=== PATIENT | female | born 1935 | race Caucasian/White ===

== ENCOUNTER 2016-08-02 17:55 | Emergency (ER) | payer OTHER ==
[~2016-08-02] VITALS: Ht 157.5 cm; Wt 98.6 kg
[~2016-08-02 17:55] MED LIST: AMLO2.5T PO; ATEN1TAB74 PO; ATOR20TA42 PO; CILO100T PO; ENAL2.5 PO; FLAX100013; GARL1000; HYDR-3533 PO; LANTUS2P SC; LUTE20CA PO; MAXZ25 PO; METF500 PO; METHO500 PO; NOVOLOGP2 SC; OMEG100037; POTA75TA2 PO; VITATAB11
[2016-08-02 17:58] VITALS: BP 149/64; PULSE 76; RESP 20; TEMP 98.2; O2SAT 100
[2016-08-02] MEDS ORDERED: SODIUM CHLORIDE 0.9% FLUSH 5 ML FLUSH IVF PRN (19:45)
[2016-08-02 20:18] LABS: AUTOMATED NEUTROPHIL # 6.1 TH/MM3 (1.8-7.7); BASOPHIL # 0.1 TH/MM3 (0-0.2); BASOPHIL % 0.5 % (0.0-2.0); EOSINOPHIL # 0.3 TH/MM3 (0-0.4); EOSINOPHIL % 2.5 % (0.0-4.0); HEMATOCRIT 35.5 % (35.0-46.0); LYMPH % 25.9 % (9.0-44.0); MEAN CELL VOLUME 83.8 FL (80.0-100.0); MEAN CORPUSCULAR HEMOGLOBIN 27.7 PG (27.0-34.0); MEAN CORPUSCULAR HGB CONC 33.1 % (32.0-36.0); MONO % 17.7 % (0.0-8.0); NEUT % 53.4 % (16.0-70.0); PLATELET COUNT 393 TH/MM3 (150-450); RED BLOOD COUNT 4.24 MIL/MM3 (4.00-5.30); RED CELL DISTRIBUTION WIDTH 13.4 % (11.6-17.2); WHITE BLOOD COUNT 11.5 TH/MM3 (4.0-11.0)
--- NOTE | 2016-08-02 20:21 | RADHPO ---
EXAM DATE/TIME: 08/02/2016 20:12 [facility] COMPARISON: No previous studies available for comparison. INDICATIONS : Short of breath for 3 weeks. MEDICAL HISTORY : None. SURGICAL HISTORY : None. ENCOUNTER: Initial ACUITY: 3 weeks PAIN SCORE: 0/10 LOCATION: Bilateral chest FINDINGS: Trace bibasilar atelectasis. No acute pneumonia seen. No pleural effusion or pneumothorax. Heart size within normal limits. CONCLUSION: Minimal bibasilar atelectasis. Blanco Barraza MD on August 02, 2016 at 20:19 Board Certified Radiologist. This report was verified electronically.
[2016-08-02 20:23] LABS: CHLORIDE 105 MEQ/L (98-107); POTASSIUM 3.5 MEQ/L (3.5-5.1); SODIUM (NA) 142 MEQ/L (136-145)
[2016-08-02 20:26] LABS: ANION GAP 12 MEQ/L (5-15); BICARBONATE 25.5 MEQ/L (21.0-32.0); BLOOD UREA NITROGEN 27 MG/DL (7-18); HEMO FLAGS AUTO DIFF; MAGNESIUM 1.7 MG/DL (1.5-2.5)
[2016-08-02 20:30] LABS: GLOMERULAR FILTRATION RATE 43 ML/MIN (>89)
[2016-08-02 20:33] LABS: CREATINE KINASE 145 U/L (26-192)
--- NOTE | 2016-08-02 20:42 | PD ---
HPI Chief Complaint: Cold / Flu Symptoms Time Seen by Provider: 20:35 Travel History International Travel<30 days: No Contact w/Intl Traveler<30days: No Traveled to known affect area: No History of Present Illness HPI 80-year-old female presents to the emergency department stating that she has sinus pressure congestion sore throat and some intermittent chest tightness that reminds her of previous episodes of bronchitis. Patient states episodes began approximately one month ago. In the interim symptoms seem to improve after approximately 2-1/2 weeks. In the meantime she has undergone laser surgery to her eye and required eyedrops for eye surgery 2 weeks ago on a Monday ; subsequently the following week again underwent laser eye surgery with eyedrops on a Monday and since that time she feels that her throat soreness or burning is related to the eyedrops she has received for anesthesia for her procedures. Patient states she is not notice symptoms when she receives the eyedrops. Patient also reports that she's had shortness of breath that reminds her of previous episodes of bronchitis that she's had in the past that affects her ability to rest and sleep properly at night. Patient has not noticed any new chest pain radiating to the neck jaw back shoulder or arms abdomen and also no lower extremity pain or swelling. Patient denies any fever or chills. Patient has not seen her primary care provider but antibiotic which she is presently taking and is on day 8 of this medication but has not noticed any improvement of symptoms. Patient has not been on steroids and states because of her diabetes she does not take steroids as it adversely affects her blood sugar. Patient rates her overall discomfort 1/10 in intensity. PFSH Past Medical History Narrative Medical Pancreatic cancer with partial pancreatectomy splenectomy partial colectomy, dyslipidemia, diabetes, bronchitis, retinal hemorrhage, COPD, stage III kidney disease, hypertension, carpal tunnel repair, no tobacco use; nursing notes reviewed Cancer: Yes (CANCER OF PANCREAS) High Cholesterol: Yes Diabetes: Yes Patient Takes Glucophage: Yes Diminished Hearing: No Genitourinary: Yes (STAGE 3 KIDNEY DISEASE) Hypertension: Yes Medical other: Yes (HAVING LASER TX TO EYES NOW) Respiratory: Yes (COPD) Past Surgical History Abdominal Surgery: Yes (3/4 OF PANCREAS REMOVED, SPLEENECTOMY, BOWEL RESECTION ) Other Surgery: Yes (CARPAL TUNNEL SURGERY ) Social History Alcohol Use: No Tobacco Use: No Substance Use: No Allergies-Medications (Allergen,Severity, Reaction): Coded Allergies: Contrast Media (Verified Allergy, Intermediate, SOB, 06/17/15) Iopamidol (ISOVUE) (Unverified Allergy, Unknown, Pre-medicated Benadryl and Prednisone, 06/17/15) Uncoded Allergies: STEROIDS (Adverse Reaction, Unknown, DRIVES UP BLOOD SUGAR, 11/29/14) Reported Meds & Prescriptions Reported Meds & Active Scripts Active E-Z Spacer-Aerosol Holding Chamber 1 Mis Mis 1 Ea .ROUTE DIRECTED Lasix (Furosemide) 20 Mg Tab 20 Mg PO DAILY Proventil Hfa 6.7 GM Inh (Albuterol Sulfate) 90 Mcg/Act Aer 2 Puff INH Q4-6H PRN Reported Fish Oil ([place]-3 Fatty Acids) 1,000 Mg Cap Flax Seed Oil 1300 mg (Flaxseed (Linseed)) 1 Cap Cap Garlic Oil 1000 (Garlic) 2 Mg Cap Potassimin (Potassium) 75 Mg Tab Vitamin B Complex (B-Complex Vitamins) 1 Tab Lutein 20 ([facility] Natural Products) 1 Cap 1 Cap PO DAILY Enalapril (Enalapril Maleate) 2.5 Mg Tab 2.5 Mg PO DAILY Amlodipine (Amlodipine Besylate) 5 Mg Tab 5 Mg PO DAILY Atenolol 50 Mg Tab 50 Mg PO DAILY Atenolol 25 Mg Tab 25 Mg PO DAILY Atorvastatin (Atorvastatin Calcium) 20 Mg Tab 20 Mg PO HS Triamterene-Hydrochlorothiazide 37.5-25 Mg Cap 1 Cap PO DAILY Metformin (Metformin HCl) 1,000 Mg Tab 1,000 Mg PO BIDPC With meals Novolog Inj (Insulin Aspart) 100 Unit/Ml Inj Review of Systems Except as stated in HPI: all other systems reviewed are Neg General / Constitutional: No: Fever, Chills HENT: Positive: Congestion Cardiovascular: Positive: Chest Pain or Discomfort, No: Claudication Respiratory: Positive: Cough (tightness), Shortness of Breath, No: Orthopnea, Pleuritic Pain Gastrointestinal: No: Nausea, Vomiting, Diarrhea, Abdominal Pain Genitourinary: No: Dysuria, Flank Pain Musculoskeletal: No: Edema, Pain Skin: No Rash Neurologic: No: Weakness Psychiatric: Positive: Anxiety Hematologic/Lymphatic: No: Lymph Node Enlargement Physical Exam Narrative GENERAL: Well-developed well-nourished obese female in no acute distress no respiratory distress SKIN: Warm and dry. HEAD: Atraumatic. Normocephalic. EYES: Pupils equal and round. No scleral icterus. No injection or drainage. ENT: No nasal bleeding or discharge. Mucous membranes pink and moist. Posterior pharynx no erythema no edema no exudative change. NECK: Trachea midline. No JVD. Supple no meningismus no nuchal rigidity CARDIOVASCULAR: Regular rate and rhythm. RESPIRATORY: No accessory muscle use. Clear to auscultation. Breath sounds equal bilaterally. GASTROINTESTINAL: Abdomen soft, non-tender, nondistended. Hepatic and splenic margins not palpable. MUSCULOSKELETAL: Extremities without clubbing, cyanosis, or edema. No obvious deformities. Dorsalis pedis pulses 2+ to palpation radial pulses 2+ to palpation NEUROLOGICAL: Awake and alert. No obvious cranial nerve deficits. Motor grossly within normal limits. Five out of 5 muscle strength in the arms and legs. Normal speech. PSYCHIATRIC: Appropriate mood and affect; insight and judgment normal. Data Data Last Documented VS Vital Signs Date Time Temp Pulse Resp B/P Pulse Ox O2 Delivery O2 Flow Rate FiO2 08/02/16 21:09 74 16 140/73 Room Air 08/02/16 19:07 99 08/02/16 17:58 98.2 Orders Complete Blood Count With Diff (08/02/16 19:31) Basic Metabolic Panel (Bmp) (08/02/16 19:31) B-Type Natriuretic Peptide (08/02/16 19:31) Magnesium (Mg) (08/02/16 19:31) Ckmb (Isoenzyme) Profile (08/02/16 19:31) Troponin I (08/02/16 19:31) Urinalysis - C+S If Indicated (08/02/16 19:31) Iv Access Insert/Monitor (08/02/16 19:31) Ecg Monitoring (08/02/16 19:31) Oximetry (08/02/16 19:31) Oxygen Administration (08/02/16 19:31) Chest, Single Ap (08/02/16 19:31) Sodium Chloride 0.9% Flush (Ns Flush) (08/02/16 19:45) CKMB (08/02/16 20:00) CKMB% (08/02/16 20:00) Albuterol-Ipratropium Neb (Duoneb Neb) (08/02/16 21:15) Electrocardiogram (08/02/16 18:42) Labs Laboratory Tests Test 08/02/16 08/02/16 20:00 20:40 White Blood Count 11.5 TH/MM3 Red Blood Count 4.24 MIL/MM3 Hemoglobin 11.7 GM/DL Hematocrit 35.5 % Mean Corpuscular Volume 83.8 FL Mean Corpuscular Hemoglobin 27.7 PG Mean Corpuscular Hemoglobin 33.1 % Concent Red Cell Distribution Width 13.4 % Platelet Count 393 TH/MM3 Mean Platelet Volume 8.5 FL Neutrophils (%) (Auto) 53.4 % Lymphocytes (%) (Auto) 25.9 % Monocytes (%) (Auto) 17.7 % Eosinophils (%) (Auto) 2.5 % Basophils (%) (Auto) 0.5 % Neutrophils # (Auto) 6.1 TH/MM3 Lymphocytes # (Auto) 3.0 TH/MM3 Monocytes # (Auto) 2.0 TH/MM3 Eosinophils # (Auto) 0.3 TH/MM3 Basophils # (Auto) 0.1 TH/MM3 CBC Comment AUTO DIFF Differential Total Cells 100 Counted Neutrophils % (Manual) 62 % Lymphocytes % 35 % Monocytes % 1 % Eosinophils % 2 % Neutrophils # (Manual) 7.1 TH/MM3 Differential Comment FINAL DIFF MANUAL Platelet Estimate NORMAL Platelet Morphology Comment NORMAL Red Cell Morphology Comment NORMAL Sodium Level 142 MEQ/L Potassium Level 3.5 MEQ/L Chloride Level 105 MEQ/L Carbon Dioxide Level 25.5 MEQ/L Anion Gap 12 MEQ/L Blood Urea Nitrogen 27 MG/DL Creatinine 1.20 MG/DL Estimat Glomerular Filtration 43 ML/MIN Rate Random Glucose 151 MG/DL Calcium Level 9.0 MG/DL Magnesium Level 1.7 MG/DL Total Creatine Kinase 145 U/L Creatine Kinase MB 2.6 NG/ML Troponin I LESS THAN 0.02 NG/ML B-Type Natriuretic Peptide 111 PG/ML Urine Color YELLOW Urine Turbidity CLEAR Urine pH 6.0 Urine Specific [place] 1.019 Urine Protein NEG mg/dL Urine Glucose (UA) 250 mg/dL Urine Ketones NEG mg/dL Urine Occult Blood NEG Urine Nitrite NEG Urine Bilirubin NEG Urine Leukocyte Esterase NEG Urine Squamous Epithelial 0-5 /hpf Cells Microscopic Urinalysis Comment CULT NOT INDICATED MDM Medical Decision Making Medical Screen Exam Complete: Yes Emergency Medical Condition: Yes Medical Record Reviewed: Yes Interpretation(s) CBC & BMP Diagram 08/02/16 20:00 Last Impressions Chest X-Ray 08/02/16 193 Signed Impressions: Service Date/Time: Tuesday, August 02, 2016 20:12 - CONCLUSION: Minimal bibasilar atelectasis. Blanco Barraza MD Troponin I: Less than 0.02, not elevated; BNP: 111, mildly elevated; CK total 145, not elevated MB percent 1.7%, not elevated Differential Diagnosis Sinusitis, rhinosinusitis, allergic rhinitis, pharyngitis, bronchitis, pneumonia , CHF, ACS, PE Narrative Course Specimens collected and sent for resulting EKG performed sinus rhythm rate [address] elevation or injury pattern change noted artifact is present at baseline occasional PVCs noted Lab values grossly normal range except for renal insufficiency and BNP of 111 chest x-ray shows some basilar atelectasis versus mild cephalization patient with history of chronic kidney disease stage III which appears to be unchanged from labs today. Patient administered DuoNeb updraft 1 The patient is clinically improved after updraft treatment Patient is stable for outpatient management and close follow-up with her primary care physician Diagnosis Primary Impression: Bronchitis Additional Impression: Dyspnea Referrals: Primary Care Physician call for appointment Patient Instructions: General Instructions Additional Instructions: Follow-up with primary care physician call office in a.m. to schedule follow-up appointment this week Use inhaler as prescribed Complete current course of antibiotic as prescribed Return to the emergency department for any concerns or change in condition Take short course of diuretic as prescribed Med/Other Pt SpecificInfo: Prescription(s) given Scripts E-Z Spacer-Aerosol Holding Chamber 1 Mis Mis #1 EA .ROUTE DIRECTED Ref 0 Prov:Lois Tam MD 08/02/16 Furosemide (Lasix)20 Mg Tab20 Mg PO DAILY #3 TAB Ref 0 Prov:Lois Tam MD 08/02/16 Albuterol 6.7 GM Inh (Proventil Hfa 6.7 GM Inh)90 Mcg/Act Aer2 Puff INH Q4-6H PRN (SHORTNESS OF BREATH) #1 INHALER Ref 0 Prov:Lois Tam MD 08/02/16 Disposition: 01 DISCHARGE HOME Condition: Stable Lois Tam MD Aug 02, 2016 20:42
[2016-08-02 20:45] LABS: CKMB 2.6 NG/ML (0.5-3.6)
[2016-08-02 20:49] LABS: BLOOD, URINE NEG (NEG); GLUCOSE,URINE 250 mg/dL (NEG); KETONE, URINE NEG (NEG); NITRITE,URINE NEG (NEG)
[2016-08-02 20:51] LABS: URINE COLOR YELLOW (YELLW/STRAW)
[2016-08-02 21:05] LABS: EOSINOPHILS 2 % (0-4); NEUTROPHIL # MANUAL DIFF 7.1 TH/MM3 (1.8-7.7); POLYS (SEG NEUTROPHILS) 62 % (16-70); WBC DIFF SAMPLE 100
[2016-08-02] MEDS ORDERED: NOVOLOGSS (21:05)
[2016-08-02] MEDS ORDERED: ATEN25TA PO (21:05)
[2016-08-02] MEDS ORDERED: GARL1000 (21:05)
[2016-08-02] MEDS ORDERED: VITATAB11 (21:05)
[2016-08-02] MEDS ORDERED: ENAL2.5T PO (21:05)
[2016-08-02] MEDS ORDERED: FISH1000 (21:05)
[2016-08-02] MEDS ORDERED: ATEN50TA PO (21:05)
[2016-08-02] MEDS ORDERED: MISCCAP32 PO (21:05)
[2016-08-02] MEDS ORDERED: POTA75TA2 (21:05)
[2016-08-02] MEDS ORDERED: METF1000 PO (21:05)
[2016-08-02] MEDS ORDERED: FLAX1300 (21:05)
[2016-08-02] MEDS ORDERED: ATOR20TA15 PO (21:05)
[2016-08-02] MEDS ORDERED: AMLO5TAB2 PO (21:05)
[2016-08-02] MEDS ORDERED: TRIA37.53 PO (21:05)
[2016-08-02 21:06] LABS: PLATELET ESTIMATE SMEAR NORMAL (NORMAL); PLATELET MORPHOLOGY NORMAL (NORMAL); SCAN/DIFF FINAL DIFF MANUAL
[2016-08-02 21:09] VITALS: BP 140/73; PULSE 74; RESP 16
[2016-08-02] MEDS ORDERED: RESP: ALBUTEROL 2.5 MG/IPRATROPIUM 0.5 MG NEB (SCH) NEB ONE (21:15)
[2016-08-02 21:22] LABS: COMMENT (UR) CULT NOT INDICATED; CULTURE IF INDICATED CULT NOT INDICATED; SQUAMOUS EPITHELIAL CELL URINE 0-5 /hpf (0-5)
[2016-08-02] MEDS ORDERED: E-ZMIS3 (21:33)
[2016-08-02] MEDS ORDERED: ALBU6.7H INH (21:33)
[2016-08-02] MEDS ORDERED: FURO1TAB62 PO (21:33)
[2016-08-02] MEDS ORDERED: DOXY100C PO (21:51)
[2016-08-02 21:58] VITALS: BP 148/67
--- NOTE | 2016-08-03 22:22 | EKG ---
Date Performed: 08/02/2016 Time Performed: 18:42:08 PTAGE: 80 years EKG: Sinus arrhythmia with PVC(s). Anterolateral T wave changes are nonspecific Low QRS voltages in precordial leads Abnormal ECG PREVIOUS TRACING : 04/26/2005 09.29 Compared to prior tracing no significant change DOCTOR: Martin Pendleton Interpretating Date/Time 08/03/2016 22:20:35
== END 2016-08-02 22:15 | disposition home or self-care (01) ==
LOC: PHED 17:55
DX: J40 Bronchitis, not specified as acute or chronic (principal); R06.00 Dyspnea, unspecified; R94.31 Abnormal electrocardiogram [ECG] [EKG]; R07.89 Other chest pain; E11.9 Type 2 diabetes mellitus without complications; I12.9 Hypertensive chronic kidney disease with stage 1 through stage 4 chronic kidney disease, or unspecified chronic kidney disease; N18.3 Chronic kidney disease, stage 3 (moderate); E78.5 Hyperlipidemia, unspecified; Z79.84 Long term (current) use of oral hypoglycemic drugs; Z87.09 Personal history of other diseases of the respiratory system; Z85.07 Personal history of malignant neoplasm of pancreas
CPT/HCPCS: 71010; 80048; 81001; 82550; 82552; 83735; 83880; 84484; 85007; 85027; 93005; 94664

== ENCOUNTER 2017-08-15 14:05 | Emergency (ER) | payer OTHER ==
[~2017-08-15] VITALS: Ht 157.5 cm; Wt 92.7 kg
[~2017-08-15 14:05] MED LIST changes: +ALBU6.7H INH; -AMLO2.5T PO; +AMLO5TAB2 PO; -ATEN1TAB74 PO; +ATEN25TA PO; +ATEN50TA PO; +ATOR20TA15 PO; -ATOR20TA42 PO; -CILO100T PO; +DOXY100C PO; +E-ZMIS3; -ENAL2.5 PO; +ENAL2.5T PO; +FISH1000; -FLAX100013; +FLAX1300; +FURO1TAB62 PO; -HYDR-3533 PO; -LANTUS2P SC; -LUTE20CA PO; -MAXZ25 PO; +METF1000 PO; -METF500 PO; -METHO500 PO; +MISCCAP32 PO; -NOVOLOGP2 SC; +NOVOLOGSS; -OMEG100037; +POTA75TA2; -POTA75TA2 PO; +TRIA37.53 PO
[2017-08-15 14:13] VITALS: BP 133/75; PULSE 68; RESP 16; TEMP 98.4; O2SAT 95
[2017-08-15] MEDS ORDERED: NOVOLOGP2 SQ (14:26)
[2017-08-15] MEDS ORDERED: LANTUS2P SQ ×2 (14:26)
--- NOTE | 2017-08-15 15:38 | RADRPT ---
EXAM DATE/TIME: 08/15/2017 15:11 [facility] COMPARISON: No previous studies available for comparison. INDICATIONS : Left femur pain. Patient states she twisted her leg wrong while trying to catch her balance. MEDICAL HISTORY : None. SURGICAL HISTORY : None. ENCOUNTER: Initial ACUITY: 1 day PAIN SCORE: 4/10 LOCATION: Left femur. FINDINGS: Two view examination of the left femur demonstrates no evidence of fracture or dislocation. Bony min eralization is normal. The soft tissue structures are intact. Vascular calcifications are seen in th e soft tissues. CONCLUSION: 1. No acute fracture or joint dislocation. Chauncey Barnes MD on August 15, 2017 at 15:36 Board Certified Radiologist. This report was verified electronically.
[2017-08-15] MEDS ORDERED: TRAM50 PO (15:59)
--- NOTE | 2017-08-15 15:59 | PD ---
HPI Chief Complaint: Musculoskeletal Complaint Time Seen by Provider: 15:02 Travel History International Travel<30 days: No Contact w/Intl Traveler<30days: No Traveled to known affect area: No History of Present Illness HPI -year-old female here with left hip and thigh pain after twisting injury today. She reports she was stepping over a curb when she twisted the thigh which caused immediate pain. Pain is worse with weightbearing and range of motion. Symptom severity is mild. Alleviated with rest. PFSH Past Medical History Cancer: Yes (CANCER OF PANCREAS) High Cholesterol: Yes Diabetes: Yes Diminished Hearing: No Genitourinary: Yes (STAGE 3 KIDNEY DISEASE) Hypertension: Yes Respiratory: Yes (COPD) ?: Not Past Surgical History Abdominal Surgery: Yes (3/4 OF PANCREAS REMOVED, SPLEENECTOMY, BOWEL RESECTION ) Other Surgery: Yes (CARPAL TUNNEL SURGERY ) Social History Alcohol Use: No Tobacco Use: No Substance Use: No Allergies-Medications (Allergen,Severity, Reaction): Coded Allergies: diatrizoate meglumine (Unverified Allergy, Intermediate, SOB, 08/15/17) gadobenic acid (Unverified Allergy, Intermediate, SOB, 08/15/17) gadodiamide (Unverified Allergy, Intermediate, SOB, 08/15/17) gadoteridol (Unverified Allergy, Intermediate, SOB, 08/15/17) iodixanol (Unverified Allergy, Intermediate, SOB, 08/15/17) iohexol (Unverified Allergy, Intermediate, SOB, 08/15/17) iopamidol (Unverified Allergy, Unknown, Pre-medicated Benadryl and Prednisone, 08/15/17) Uncoded Allergies: STEROIDS (Adverse Reaction, Unknown, DRIVES UP BLOOD SUGAR, 11/29/14) Reported Meds & Prescriptions Reported Meds & Active Scripts Active Ultram (Tramadol HCl) 50 Mg Tab 50 Mg PO Q6H PRN E-Z Spacer-Aerosol Holding Chamber 1 Mis Mis 1 Ea .ROUTE DIRECTED Lasix (Furosemide) 20 Mg Tab 20 Mg PO DAILY Proventil Hfa 6.7 GM Inh (Albuterol Sulfate) 90 Mcg/Act Aer 2 Puff INH Q4-6H PRN Reported Novolog Inj (Insulin Aspart) 1,000 Unit/10 Ml Vial 0 SQ DIRECTED Sliding Scale as directed. Lantus Inj (Insulin Glargine) 1,000 Unit/10 Ml Vial 20 Units SQ HS Lantus Inj (Insulin Glargine) 1,000 Unit/10 Ml Vial 25 Units SQ DAILY Fish Oil ([place]-3 Fatty Acids) 1,000 Mg Cap Flax Seed Oil 1300 mg (Flaxseed (Linseed)) 1 Cap Cap Garlic Oil 1000 (Garlic) 2 Mg Cap Vitamin B Complex (B-Complex Vitamins) 1 Tab Enalapril (Enalapril Maleate) 2.5 Mg Tab 2.5 Mg PO DAILY Amlodipine (Amlodipine Besylate) 5 Mg Tab 5 Mg PO DAILY Atenolol 50 Mg Tab 50 Mg PO DAILY Atenolol 25 Mg Tab 25 Mg PO DAILY Atorvastatin (Atorvastatin Calcium) 20 Mg Tab 20 Mg PO HS Triamterene-Hydrochlorothiazide 37.5-25 Mg Cap 1 Cap PO DAILY Metformin (Metformin HCl) 1,000 Mg Tab 1,000 Mg PO BIDPC With meals Novolog Inj (Insulin Aspart) 100 Unit/Ml Inj Review of Systems Except as stated in HPI: all other systems reviewed are Neg General / Constitutional: No: Fever Eyes: No: Visual changes HENT: No: Headaches Cardiovascular: No: Chest Pain or Discomfort Respiratory: No: Shortness of Breath Gastrointestinal: No: Abdominal Pain Genitourinary: No: Dysuria Skin: No Rash Neurologic: No: Weakness Physical Exam Narrative GENERAL: Alert and well-appearing 82-year-old female SKIN: Warm and dry. HEAD: Normocephalic. EYES: No injection or drainage. NECK: Supple. CARDIOVASCULAR: Regular rate and rhythm without murmurs, gallops, or rubs. RESPIRATORY: Breath sounds equal bilaterally. No accessory muscle use. GASTROINTESTINAL: Abdomen soft, non-tender, nondistended. MUSCULOSKELETAL: No cyanosis, or edema. +TTP L lateral hip. Pain with flexion and external rotation of the hip. Palpable pedal pulse which is equal bilaterally. Brisk cap refill. Normal sensation. Good coloration. BACK: Nontender without obvious deformity. No CVA tenderness. Data Data Last Documented VS Vital Signs Date Time Temp Pulse Resp B/P (MAP) Pulse Ox O2 Delivery O2 Flow Rate FiO2 08/15/17 14:13 98.4 68 16 133/75 (94) 95 Orders Orders Femur (Ap & Lat/2vws) (08/15/17 ) Ed Discharge Order (08/15/17 16:00) [facility] Medical Decision Making Medical Screen Exam Complete: Yes Emergency Medical Condition: Yes Differential Diagnosis Hip fracture, hip strain, quadriceps strain Narrative Course 82-year-old female here with left hip and thigh pain after a twisting injury today. The extremity is neurovascularly intact. Patient has equal and palpable pedal pulses. X-rays negative for fracture. Patient will be treated for hip strain. Return precautions were discussed. Patient is to follow-up with her primary doctor. Diagnosis Primary Impression: Strain of hip Qualified Codes: S76.012A - Strain of muscle, fascia and tendon of left hip, initial encounter Referrals: Primary Care Physician Additional Instructions: Tylenol as needed for pain. The lifting or strenuous activity. Follow-up with her primary doctor. Return if he developed new or worsening symptoms. Scripts Tramadol (Ultram) 50 Mg Tab 50 MG PO Q6H Y for PAIN, #10 TAB 0 Refills Prov: Maren Rubin 08/15/17 Disposition: 01 DISCHARGE HOME Condition: Stable Maren Rubin Aug 15, 2017 15:59
== END 2017-08-15 16:15 | disposition home or self-care (01) ==
LOC: PHEFT 14:05
DX: S76.012A Strain of muscle, fascia and tendon of left hip, initial encounter (principal); X50.9XXA Other and unspecified overexertion or strenuous movements or postures, initial encounter; E78.00 Pure hypercholesterolemia, unspecified; I12.9 Hypertensive chronic kidney disease with stage 1 through stage 4 chronic kidney disease, or unspecified chronic kidney disease; E11.22 Type 2 diabetes mellitus with diabetic chronic kidney disease; N18.3 Chronic kidney disease, stage 3 (moderate); J44.9 Chronic obstructive pulmonary disease, unspecified; Z79.4 Long term (current) use of insulin; Z79.84 Long term (current) use of oral hypoglycemic drugs; Z85.07 Personal history of malignant neoplasm of pancreas
CPT/HCPCS: 73552; 99283

== ENCOUNTER 2017-11-17 19:59 | Emergency (ER) | payer OTHER ==
[~2017-11-17] VITALS: Ht 157.5 cm; Wt 93.6 kg
[~2017-11-17 19:59] MED LIST changes: -DOXY100C PO; +LANTUS2P SQ; -MISCCAP32 PO; +NOVOLOGP2 SQ; -POTA75TA2; +TRAM50 PO
[2017-11-17 20:06] VITALS: BP 173/70; PULSE 56; RESP 20; TEMP 97.7; O2SAT 96
--- NOTE | 2017-11-17 20:35 | PD ---
HPI Chief Complaint: Respiratory Symptoms Time Seen by Provider: 20:23 Travel History International Travel<30 days: No Contact w/Intl Traveler<30days: No Traveled to known affect area: No History of Present Illness HPI The patient was seen and examined in the presence of the nurse. This patient complains of shortness of breath. She has history of COPD. She has a nebulizer and inhaler at home but did not try them today. She has occasional cough and some congestion and a bit of runny nose. She denies fever or chest pain. Symptoms are worse with exertion. No leg edema. No alleviating factors. Symptoms exacerbated by exertion. Duration 3 days. PFSH Past Medical History Cancer: Yes (CANCER OF PANCREAS) High Cholesterol: Yes Diabetes: Yes (METORMIN AND INSULIN) Diminished Hearing: No Genitourinary: Yes (STAGE 3 KIDNEY DISEASE) Hypertension: Yes Respiratory: Yes (COPD) Past Surgical History Abdominal Surgery: Yes (3/4 OF PANCREAS REMOVED, SPLEENECTOMY, BOWEL RESECTION ) Other Surgery: Yes (CARPAL TUNNEL SURGERY ) Social History Alcohol Use: No Tobacco Use: No Substance Use: No Allergies-Medications (Allergen,Severity, Reaction): Coded Allergies: diatrizoate meglumine (Unverified Allergy, Intermediate, SOB, 11/17/17) gadobenic acid (Unverified Allergy, Intermediate, SOB, 11/17/17) gadodiamide (Unverified Allergy, Intermediate, SOB, 11/17/17) gadoteridol (Unverified Allergy, Intermediate, SOB, 11/17/17) iodixanol (Unverified Allergy, Intermediate, SOB, 11/17/17) iohexol (Unverified Allergy, Intermediate, SOB, 11/17/17) iopamidol (Unverified Allergy, Unknown, Pre-medicated Benadryl and Prednisone, 11/17/17) Uncoded Allergies: STEROIDS (Adverse Reaction, Unknown, DRIVES UP BLOOD SUGAR, 11/29/14) Reported Meds & Prescriptions Reported Meds & Active Scripts Active Levaquin (Levofloxacin) 750 Mg Tablet 750 Mg PO DAILY Ultram (Tramadol HCl) 50 Mg Tab 50 Mg PO Q6H PRN E-Z Spacer-Aerosol Holding Chamber 1 Mis Mis 1 Ea .ROUTE DIRECTED Proventil Hfa 6.7 GM Inh (Albuterol Sulfate) 90 Mcg/Act Aer 2 Puff INH Q4-6H PRN Reported Lantus Inj (Insulin Glargine) 1,000 Unit/10 Ml Vial 30 Units SQ DAILY Lantus Inj (Insulin Glargine) 1,000 Unit/10 Ml Vial 20 Units SQ HS Novolog Inj (Insulin Aspart) 1,000 Unit/10 Ml Vial 0 SQ DIRECTED Sliding Scale as directed. Fish Oil ([place]-3 Fatty Acids) 1,000 Mg Cap Flax Seed Oil 1300 mg (Flaxseed (Linseed)) 1 Cap Cap Garlic Oil 1000 (Garlic) 2 Mg Cap Vitamin B Complex (B-Complex Vitamins) 1 Tab Enalapril (Enalapril Maleate) 2.5 Mg Tab 2.5 Mg PO DAILY Amlodipine (Amlodipine Besylate) 5 Mg Tab 5 Mg PO DAILY Atenolol 25 Mg Tab 25 Mg PO DAILY Atorvastatin (Atorvastatin Calcium) 20 Mg Tab 20 Mg PO HS Triamterene-Hydrochlorothiazide 37.5-25 Mg Cap 1 Cap PO DAILY Metformin (Metformin HCl) 1,000 Mg Tab 1,000 Mg PO BIDPC With meals Review of Systems General / Constitutional: No: Fever Eyes: No: Visual changes HENT: Positive: Congestion, No: Headaches Cardiovascular: No: Chest Pain or Discomfort Respiratory: Positive: Cough, Shortness of Breath Gastrointestinal: No: Abdominal Pain Genitourinary: No: Dysuria Musculoskeletal: No: Pain Skin: No Rash Neurologic: No: Weakness Psychiatric: No: Depression Endocrine: No: Polydipsia Hematologic/Lymphatic: No: Easy Bruising Physical Exam Narrative GENERAL: Well-nourished, well-developed patient in no apparent distress. SKIN: Focused skin assessment reveals no rash and nodules. Skin is Warm and dry. HEAD: Atraumatic. Normocephalic. EYES: Pupils equal and round. No scleral icterus. No injection or drainage. ENT: No nasal bleeding or discharge. Mucous membranes pink and moist. Uvula midline without swelling. It is very subtle but there is a trace of periorbital edema bilaterally. NECK: Trachea midline. No JVD. No swelling CARDIOVASCULAR: Regular rate and rhythm. No murmur appreciated. RESPIRATORY: No accessory muscle use. Has some rhonchi . Breath sounds equal bilaterally. No significant wheezing heard or crackles GASTROINTESTINAL: Abdomen soft, non-tender, nondistended. Hepatic and splenic margins not palpable. MUSCULOSKELETAL: No obvious deformities. No clubbing. No cyanosis. No edema. NEUROLOGICAL: Awake and alert. No obvious cranial nerve deficits. Motor grossly within normal limits. Normal speech. PSYCHIATRIC: Appropriate mood and affect; insight and judgment normal. Data Data Last Documented VS Vital Signs Date Time Temp Pulse Resp B/P (MAP) Pulse Ox O2 Delivery O2 Flow Rate FiO2 11/17/17 20:53 56 20 11/17/17 20:06 97.7 173/70 (104) 96 Orders Orders Albuterol-Ipratropium Neb (Duoneb Neb) (11/17/17 20:45) Chest, Single Ap (11/17/17 ) Iv Access Insert/Monitor (11/17/17 20:35) Electrocardiogram (11/17/17 ) Complete Blood Count With Diff (11/17/17 20:35) Basic Metabolic Panel (Bmp) (11/17/17 20:35) Ckmb (Isoenzyme) Profile (11/17/17 20:35) Troponin I (11/17/17 20:35) CKMB (11/17/17 21:10) CKMB% (11/17/17 21:10) Labs Laboratory Tests Test 11/17/17 21:10 White Blood Count 14.0 TH/MM3 Red Blood Count 4.52 MIL/MM3 Hemoglobin 12.4 GM/DL Hematocrit 38.8 % Mean Corpuscular Volume 85.9 FL Mean Corpuscular Hemoglobin 27.4 PG Mean Corpuscular Hemoglobin Concent 31.9 % Red Cell Distribution Width 13.9 % Platelet Count 389 TH/MM3 Mean Platelet Volume 7.5 FL Neutrophils (%) (Auto) 57.9 % Lymphocytes (%) (Auto) 27.5 % Monocytes (%) (Auto) 11.8 % Eosinophils (%) (Auto) 2.5 % Basophils (%) (Auto) 0.3 % Neutrophils # (Auto) 8.0 TH/MM3 Lymphocytes # (Auto) 3.9 TH/MM3 Monocytes # (Auto) 1.7 TH/MM3 Eosinophils # (Auto) 0.4 TH/MM3 Basophils # (Auto) 0.0 TH/MM3 CBC Comment DIFF FINAL Differential Comment Blood Urea Nitrogen 17 MG/DL Creatinine 1.00 MG/DL Random Glucose 90 MG/DL Calcium Level 8.9 MG/DL Sodium Level 141 MEQ/L Potassium Level 3.2 MEQ/L Chloride Level 106 MEQ/L Carbon Dioxide Level 25.6 MEQ/L Anion Gap 9 MEQ/L Estimat Glomerular Filtration Rate 53 ML/MIN Total Creatine Kinase 117 U/L Troponin I LESS THAN 0.02 NG/ML MDM Medical Decision Making Medical Screen Exam Complete: Yes Emergency Medical Condition: Yes Medical Record Reviewed: Yes Differential Diagnosis COPD exacerbation, allergic reaction, bronchitis, pneumonia Narrative Course I have reviewed the patient's electronic medical record. I reviewed her chest x-ray which shows either atelectasis or consolidation in the left base possibly some pleural effusion I gave her 2 nebulizer treatments which significantly helped her breathing Room air saturations pretreatment are 96% I do not see evidence of allergic reaction No clinical suspicion of ACS I reviewed her EKG which shows sinus rhythm without ectopy Cardiac enzymes are normal CBC shows white count of 14,000 Metabolic profile reveals mild hypokalemia 3.2 On recheck the patient looks clinically well. She does not look septic nor toxic. She is not febrile. I do not feel she needs inpatient care for this. I think she has some pulmonary infection on top of COPD. I have written her 10 days of Levaquin. She gets more short of breath or spikes fever or does worsen anyway she is advised to return. She is to call her physician Monday for follow-up Diagnosis Primary Impression: Dyspnea Qualified Codes: R06.09 - Other forms of dyspnea Additional Impressions: Bronchitis COPD exacerbation Additional Instructions: The patient was advised to follow up with their physician and return if they worsen. Med/Other Pt SpecificInfo: Prescription(s) given Scripts Levofloxacin (Levaquin) 750 Mg Tablet 750 MG PO DAILY for Infection, #10 TAB 0 Refills Prov: Jn Hernandez MD 11/17/17 Disposition: DISCHARGE HOME Condition: Stable Jn Hernandez MD Nov 17, 2017 20:35
[2017-11-17] MEDS ORDERED: RESP: ALBUTEROL 2.5 MG/IPRATROPIUM 0.5 MG NEB (SCH) NEB ONE (20:45)
[2017-11-17] MEDS ORDERED: LANTUS2P SQ ×2 (20:51)
[2017-11-17 21:19] LABS: BASOPHIL % 0.3 % (0.0-2.0); EOSINOPHIL # 0.4 TH/MM3 (0-0.4); EOSINOPHIL % 2.5 % (0.0-4.0); HEMATOCRIT 38.8 % (35.0-46.0); HEMOGLOBIN 12.4 GM/DL (11.6-15.3); LYMPH % 27.5 % (9.0-44.0); LYMPHOCYTE # 3.9 TH/MM3 (1.0-4.8); MEAN CELL VOLUME 85.9 FL (80.0-100.0); MEAN CORPUSCULAR HEMOGLOBIN 27.4 PG (27.0-34.0); MEAN CORPUSCULAR HGB CONC 31.9 % (32.0-36.0); MEAN PLATELET VOLUME 7.5 FL (7.0-11.0); MONO % 11.8 % (0.0-8.0); MONOCYTE # 1.7 TH/MM3 (0-0.9); NEUT % 57.9 % (16.0-70.0); PLATELET COUNT 389 TH/MM3 (150-450); RED BLOOD COUNT 4.52 MIL/MM3 (4.00-5.30); RED CELL DISTRIBUTION WIDTH 13.9 % (11.6-17.2)
--- NOTE | 2017-11-17 21:20 | RADRPT ---
EXAM DATE: 11/17/2017 8:58 PM EDT AGE/SEX: 82 years / Female INDICATIONS: Shortness of breath. CLINICAL DATA: This is the patient's initial encounter. Patient reports that signs and symptoms have been present for 1 day and indicates a pain score of 0/10. MEDICAL/SURGICAL HISTORY: None. None. COMPARISON: [facility], CHEST SINGLE AP, 08/02/2016. . FINDINGS: The heart size is within normal limits. There is elevation of the left hemidiaphragm. This increased density at the left base. The right lung is grossly clear. CONCLUSION: Left lower lobe atelectasis or consolidation, some degree of effusion may be present. There does appe ar to be elevation of the left hemidiaphragm. Electronically signed by: Blanco Jensen MD 11/17/2017 9:18 PM EDT
[2017-11-17 21:32] LABS: CHLORIDE 106 MEQ/L (98-107); SODIUM (NA) 141 MEQ/L (136-145)
[2017-11-17 21:35] LABS: BICARBONATE 25.6 MEQ/L (21.0-32.0); BLOOD UREA NITROGEN 17 MG/DL (7-18); CALCIUM 8.9 MG/DL (8.5-10.1); GLUCOSE,RANDOM 90 MG/DL (74-106)
[2017-11-17 21:37] VITALS: BP 152/63; PULSE 70; RESP 20; O2SAT 94
[2017-11-17 21:38] LABS: GLOMERULAR FILTRATION RATE 53 ML/MIN (>89)
[2017-11-17 21:43] LABS: TROPONIN I LESS THAN 0.02 NG/ML (0.02-0.05)
[2017-11-17] MEDS ORDERED: LEVA750T9 PO (21:52)
[2017-11-17] MEDS ORDERED: POTASSIUM CHLORIDE 25 MEQ EFFERVESCENT TAB PO ONE (22:00)
[2017-11-17 22:26] VITALS: BP 156/63
--- NOTE | 2017-11-18 14:57 | EKG ---
Date Performed: 11/17/2017 Time Performed: 20:43:17 PTAGE: 82 years EKG: SINUS BRADYCARDIA LOW QRS VOLTAGE IN PRECORDIAL LEADS SEPTAL MYOCARDIAL INFARCTION ABNORMA L ECG PREVIOUS TRACING : 08/02/2016 18.42 Since the previous tracing, no significant change noted DOCTOR: Josiah Brewer Interpretating Date/Time 11/18/2017 14:57:11
== END 2017-11-17 22:32 | disposition home or self-care (01) ==
LOC: PHED 19:59
DX: J44.1 Chronic obstructive pulmonary disease with (acute) exacerbation (principal); R06.00 Dyspnea, unspecified; R94.31 Abnormal electrocardiogram [ECG] [EKG]; E78.00 Pure hypercholesterolemia, unspecified; I12.9 Hypertensive chronic kidney disease with stage 1 through stage 4 chronic kidney disease, or unspecified chronic kidney disease; E11.22 Type 2 diabetes mellitus with diabetic chronic kidney disease; N18.3 Chronic kidney disease, stage 3 (moderate); Z85.07 Personal history of malignant neoplasm of pancreas; E87.6 Hypokalemia
CPT/HCPCS: 71045; 80048; 82550; 82552; 84484; 85025; 93005; 94664; 99285

== ENCOUNTER 2017-12-03 23:30 | Emergency (ER) | payer OTHER ==
[~2017-12-03] VITALS: Ht 157.5 cm; Wt 93.5 kg
[~2017-12-03 23:30] MED LIST changes: -ATEN50TA PO; -FURO1TAB62 PO; +LEVA750T9 PO; -NOVOLOGSS
[2017-12-03 23:38] VITALS: BP 183/78; PULSE 67; RESP 18; TEMP 97.7; O2SAT 95
--- NOTE | 2017-12-04 00:12 | PD ---
HPI Chief Complaint: Allergic/Adverse Reaction Time Seen by Provider: 23:44 Travel History International Travel<30 days: No Contact w/Intl Traveler<30days: No Traveled to known affect area: No History of Present Illness HPI This is an 82-year-old female who reports that for 3 weeks she has been having intermittent swelling of her face and neck as well as feeling like her throat is tight, constant, moderate severity. She attributes it to inhalers that she was started on by her primary care physician. She has been taking Benadryl and she says the Benadryl helps. She comes to the emergency department tonight because she noticed that her left leg is more swollen than normal. She denies any recent long trips or travel and denies any family history of blood clot. PFSH Past Medical History Cancer: Yes (CANCER OF PANCREAS) High Cholesterol: Yes COPD: Yes Diabetes: Yes (METORMIN AND INSULIN) Patient Takes Glucophage: No Diminished Hearing: No Genitourinary: Yes (STAGE 3 KIDNEY DISEASE) Hypertension: Yes Respiratory: Yes (COPD) Tetanus Vaccination: < 5 Years Influenza Vaccination: Yes ?: Not Menopausal: Yes Past Surgical History Abdominal Surgery: Yes (3/4 OF PANCREAS REMOVED, SPLEENECTOMY, BOWEL RESECTION ) Other Surgery: Yes (CARPAL TUNNEL SURGERY ) Social History Alcohol Use: No Tobacco Use: No Substance Use: No Allergies-Medications (Allergen,Severity, Reaction): Coded Allergies: diatrizoate meglumine (Unverified Allergy, Intermediate, SOB, 12/03/17) gadobenic acid (Unverified Allergy, Intermediate, SOB, 12/03/17) gadodiamide (Unverified Allergy, Intermediate, SOB, 12/03/17) gadoteridol (Unverified Allergy, Intermediate, SOB, 12/03/17) iodixanol (Unverified Allergy, Intermediate, SOB, 12/03/17) iohexol (Unverified Allergy, Intermediate, SOB, 12/03/17) iopamidol (Unverified Allergy, Unknown, Pre-medicated Benadryl and Prednisone, 12/03/17) Uncoded Allergies: STEROIDS (Adverse Reaction, Unknown, DRIVES UP BLOOD SUGAR, 11/29/14) Reported Meds & Prescriptions Reported Meds & Active Scripts Active Ultram (Tramadol HCl) 50 Mg Tab 50 Mg PO Q6H PRN E-Z Spacer-Aerosol Holding Chamber 1 Mis Mis 1 Ea .ROUTE DIRECTED Proventil Hfa 6.7 GM Inh (Albuterol Sulfate) 90 Mcg/Act Aer 2 Puff INH Q4-6H PRN Reported Lantus Inj (Insulin Glargine) 1,000 Unit/10 Ml Vial 30 Units SQ DAILY Lantus Inj (Insulin Glargine) 1,000 Unit/10 Ml Vial 20 Units SQ HS Novolog Inj (Insulin Aspart) 1,000 Unit/10 Ml Vial 0 SQ DIRECTED Sliding Scale as directed. Fish Oil ([place]-3 Fatty Acids) 1,000 Mg Cap Flax Seed Oil 1300 mg (Flaxseed (Linseed)) 1 Cap Cap Garlic Oil 1000 (Garlic) 2 Mg Cap Vitamin B Complex (B-Complex Vitamins) 1 Tab Enalapril (Enalapril Maleate) 2.5 Mg Tab 2.5 Mg PO DAILY Amlodipine (Amlodipine Besylate) 5 Mg Tab 5 Mg PO DAILY Atenolol 25 Mg Tab 25 Mg PO DAILY Atorvastatin (Atorvastatin Calcium) 20 Mg Tab 20 Mg PO HS Triamterene-Hydrochlorothiazide 37.5-25 Mg Cap 1 Cap PO DAILY Metformin (Metformin HCl) 1,000 Mg Tab 1,000 Mg PO BIDPC With meals Review of Systems Except as stated in HPI: all other systems reviewed are Neg Physical Exam Narrative GENERAL:Well appearing, no acute distress SKIN: Focused skin assessment warm and dry. HEAD: Atraumatic. Normocephalic. EYES: Pupils equal and round. No injection or drainage. ENT: Moist mucous membranes. No appreciable facial swelling. NECK: Trachea midline. CARDIOVASCULAR: Regular rate and rhythm. No murmur appreciated. RESPIRATORY: Clear to auscultation. Breath sounds equal bilaterally. GASTROINTESTINAL: Abdomen soft, non-tender, nondistended. MUSCULOSKELETAL: 2+ pitting edema at the ankles bilaterally. NEUROLOGICAL: Awake and alert. No obvious cranial nerve deficits. Moving all extremities. PSYCHIATRIC: Appropriate mood and affect; insight and judgment normal. Data Data Last Documented VS Vital Signs Date Time Temp Pulse Resp B/P (MAP) Pulse Ox O2 Delivery O2 Flow Rate FiO2 12/03/17 23:38 97.7 67 18 183/78 (113) 95 Orders Orders Complete Blood Count With Diff (12/03/17 23:56) Comprehensive Metabolic Panel (12/03/17 23:56) B-Type Natriuretic Peptide (12/03/17 23:56) Urinalysis - C+S If Indicated (12/03/17 23:56) Thyroid Stimulating Hormone (12/03/17 23:56) Labs Laboratory Tests Test 12/04/17 00:10 White Blood Count 12.3 TH/MM3 Red Blood Count 4.54 MIL/MM3 Hemoglobin 12.6 GM/DL Hematocrit 39.3 % Mean Corpuscular Volume 86.6 FL Mean Corpuscular Hemoglobin 27.9 PG Mean Corpuscular Hemoglobin Concent 32.2 % Red Cell Distribution Width 13.7 % Platelet Count 392 TH/MM3 Mean Platelet Volume 7.8 FL Neutrophils (%) (Auto) 61.1 % Lymphocytes (%) (Auto) 25.3 % Monocytes (%) (Auto) 10.9 % Eosinophils (%) (Auto) 2.1 % Basophils (%) (Auto) 0.6 % Neutrophils # (Auto) 7.5 TH/MM3 Lymphocytes # (Auto) 3.1 TH/MM3 Monocytes # (Auto) 1.3 TH/MM3 Eosinophils # (Auto) 0.3 TH/MM3 Basophils # (Auto) 0.1 TH/MM3 CBC Comment DIFF FINAL Differential Comment Urine Color YELLOW Urine Turbidity CLEAR Urine pH 6.0 Urine Specific [place] 1.010 Urine Protein NEG mg/dL Urine Glucose (UA) NEG mg/dL Urine Ketones NEG mg/dL Urine Occult Blood TRACE Urine Nitrite NEG Urine Bilirubin NEG Urine Urobilinogen 0.2 MG/DL Urine Leukocyte Esterase NEG Urine RBC 3-5 /hpf Urine WBC 0-2 /hpf Urine Squamous Epithelial Cells 0-5 /hpf Urine Bacteria NONE /hpf Microscopic Urinalysis Comment CULT NOT INDICATED Blood Urea Nitrogen 20 MG/DL Creatinine 1.00 MG/DL Random Glucose 131 MG/DL Total Protein 7.7 GM/DL Albumin 3.4 GM/DL Calcium Level 8.9 MG/DL Alkaline Phosphatase 126 U/L Aspartate Amino Transf (AST/SGOT) 20 U/L Alanine Aminotransferase (ALT/SGPT) 23 U/L Total Bilirubin 0.5 MG/DL Sodium Level 138 MEQ/L Potassium Level 3.3 MEQ/L Chloride Level 102 MEQ/L Carbon Dioxide Level 26.6 MEQ/L Anion Gap 9 MEQ/L Estimat Glomerular Filtration Rate 53 ML/MIN B-Type Natriuretic Peptide 40 PG/ML Thyroid Stimulating Hormone 3rd Gen 2.360 uIU/ML MDM Medical Decision Making Medical Screen Exam Complete: Yes Emergency Medical Condition: Yes Interpretation(s) Labs are all reassuring including a normal TSH and normal BNP Differential Diagnosis Dependent edema, congestive heart failure, renal failure, hypothyroidism, DVT Narrative Course This is an 82-year-old female who presents to the emergency department with leg swelling that started this evening in the setting of a prolonged course of intermittent facial swelling. Labs are all reassuring including a normal BNP and TSH. Her exam is very benign with some mild edema mostly concentrated around the ankles and both feet. I do not see any physical exam findings that concern me for DVT. I did get the impression the patient has some underlying anxiety which may be contributing to her presentation. I urged her to follow- up with her primary care physician for continued evaluation. Diagnosis Primary Impression: Edema Qualified Codes: R60.9 - Edema, unspecified Patient Instructions: General Instructions Additional Instructions: If you develop severe chest pain, shortness of breath, sweating, lightheadedness , dizziness or difficulty breathing return to the emergency department immediately. Followup with your primary care physician in 2-3 days if your symptoms are not resolved. Med/Other Pt SpecificInfo: No Change to Meds Disposition: 01 DISCHARGE HOME Condition: Stable Magui Malone MD Dec 04, 2017 00:12
[2017-12-04 00:24] LABS: AUTOMATED NEUTROPHIL # 7.5 TH/MM3 (1.8-7.7); BASOPHIL # 0.1 TH/MM3 (0-0.2); BASOPHIL % 0.6 % (0.0-2.0); EOSINOPHIL # 0.3 TH/MM3 (0-0.4); EOSINOPHIL % 2.1 % (0.0-4.0); HEMATOCRIT 39.3 % (35.0-46.0); HEMOGLOBIN 12.6 GM/DL (11.6-15.3); LYMPH % 25.3 % (9.0-44.0); LYMPHOCYTE # 3.1 TH/MM3 (1.0-4.8); MEAN CELL VOLUME 86.6 FL (80.0-100.0); MEAN CORPUSCULAR HEMOGLOBIN 27.9 PG (27.0-34.0); MEAN CORPUSCULAR HGB CONC 32.2 % (32.0-36.0); MEAN PLATELET VOLUME 7.8 FL (7.0-11.0); MONO % 10.9 % (0.0-8.0); MONOCYTE # 1.3 TH/MM3 (0-0.9); NEUT % 61.1 % (16.0-70.0); PLATELET COUNT 392 TH/MM3 (150-450); RED BLOOD COUNT 4.54 MIL/MM3 (4.00-5.30); RED CELL DISTRIBUTION WIDTH 13.7 % (11.6-17.2); WHITE BLOOD COUNT 12.3 TH/MM3 (4.0-11.0)
[2017-12-04 00:31] LABS: BILIRUBIN, URINE NEG (NEG); BLOOD, URINE TRACE (NEG); GLUCOSE,URINE NEG (NEG); KETONE, URINE NEG (NEG); NITRITE,URINE NEG (NEG); URINE COLOR YELLOW (YELLW/STRAW); URINE LEUKOCYTE ESTERASE NEG (NEG)
[2017-12-04 00:34] LABS: CHLORIDE 102 MEQ/L (98-107); SODIUM (NA) 138 MEQ/L (136-145)
[2017-12-04 00:36] LABS: SQUAMOUS EPITHELIAL CELL URINE 0-5 /hpf (0-5); WBC, URINE 0-2 /hpf (0-5)
[2017-12-04 00:37] LABS: ALBUMIN 3.4 GM/DL (3.4-5.0); BICARBONATE 26.6 MEQ/L (21.0-32.0); CALCIUM 8.9 MG/DL (8.5-10.1)
[2017-12-04 00:38] LABS: BLOOD UREA NITROGEN 20 MG/DL (7-18); GLUCOSE,RANDOM 131 MG/DL (74-106)
[2017-12-04 00:41] LABS: ALT (GPT) 23 U/L (10-53); AST (GOT) 20 U/L (15-37); GLOMERULAR FILTRATION RATE 53 ML/MIN (>89)
[2017-12-04 00:42] LABS: TOTAL BILIRUBIN ADULT 0.5 MG/DL (0.2-1.0); TOTAL PROTEIN 7.7 GM/DL (6.4-8.2)
[2017-12-04 00:43] LABS: ALKALINE PHOSPHATASE 126 U/L (45-117)
[2017-12-04 01:11] VITALS: BP 160/80
== END 2017-12-04 01:24 | disposition home or self-care (01) ==
LOC: PHED 23:30
DX: R60.9 Edema, unspecified (principal); E78.00 Pure hypercholesterolemia, unspecified; J44.9 Chronic obstructive pulmonary disease, unspecified; I10 Essential (primary) hypertension; E11.9 Type 2 diabetes mellitus without complications; Z85.07 Personal history of malignant neoplasm of pancreas; Z79.4 Long term (current) use of insulin; Z79.84 Long term (current) use of oral hypoglycemic drugs
CPT/HCPCS: 80053; 81001; 83880; 84443; 85025; 99283